=== PATIENT | female | born 1935 | race Caucasian/White ===

== ENCOUNTER → 2016-06-30 | Outpatient (CLI) | payer MEDICARE, BC ==
[~2016-06-30] MED LIST: LIPITOR TAB 2020 MG PO; METOPROLOL SUCC25 MG PO; NORCO 5-325 TA1 EACH PO
[2016-06-30 11:05] LABS: BUN/CREATININE RATIO 13 (0-10)
== END ==
PROVIDERS: Orthopaedic Surgery
DX: Z01.810 Encounter for preprocedural cardiovascular examination (principal); Z01.812 Encounter for preprocedural laboratory examination; R22.31 Localized swelling, mass and lump, right upper limb; I10 Essential (primary) hypertension; Z88.0 Allergy status to penicillin; Z88.5 Allergy status to narcotic agent; Z91.040 Latex allergy status
CPT/HCPCS: 36415; 80048; 93005

== ENCOUNTER → 2016-06-30 | Outpatient (CLI) | payer MEDICARE, BC | LOC: KOH-I 06-25 08:00 | DX: R22.31 Localized swelling, mass and lump, right upper limb (principal) | CPT/HCPCS: 73218 ==

== ENCOUNTER → 2016-07-01 | Day surgery (SDC) | payer MEDICARE, BC ==
[~2016-07-01] VITALS: Ht 157.5 cm; Wt 60.8 kg
== END | disposition home or self-care (01) ==
LOC: OR 06:03
PROVIDERS: Orthopaedic Surgery
PROC: 0LR707Z Replacement of Right Hand Tendon with Autologous Tissue Substitute, Open Approach (ICD-10-PCS; 2016-07-01)
PROC: 0LB70ZZ Excision of Right Hand Tendon, Open Approach (ICD-10-PCS; principal; 2016-07-01 09:15)
DX: D49.2 Neoplasm of unspecified behavior of bone, soft tissue, and skin (principal); K21.9 Gastro-esophageal reflux disease without esophagitis; I10 Essential (primary) hypertension; E78.5 Hyperlipidemia, unspecified; J45.909 Unspecified asthma, uncomplicated; F41.9 Anxiety disorder, unspecified; M19.90 Unspecified osteoarthritis, unspecified site; M81.0 Age-related osteoporosis without current pathological fracture; Z88.0 Allergy status to penicillin; Z91.040 Latex allergy status; Z88.6 Allergy status to analgesic agent; Z85.828 Personal history of other malignant neoplasm of skin; Z98.41 Cataract extraction status, right eye; Z98.42 Cataract extraction status, left eye; Z82.49 Family history of ischemic heart disease and other diseases of the circulatory system; Z83.3 Family history of diabetes mellitus
CPT/HCPCS: 36415; 80048; 88341; 88342; 93005; J0690; J1200; J2001; J2250; J2405; J3010; J7120

== ENCOUNTER 2016-07-02 06:02 | Emergency (ER) | payer MEDICARE, BC | END 2016-07-02 08:01 | disposition home or self-care (01) | LOC: ER1 06:02 | DX: G89.18 Other acute postprocedural pain (principal); M79.641 Pain in right hand; I10 Essential (primary) hypertension; E78.5 Hyperlipidemia, unspecified; Z88.0 Allergy status to penicillin; Z88.5 Allergy status to narcotic agent; Z98.890 Other specified postprocedural states | CPT/HCPCS: 99283 ==

== ENCOUNTER 2020-06-21 23:16 | Emergency (ER) | payer MEDICARE ==
[2020-06-22 01:25] LABS: HEMOGLOBIN 13.2 gm/dl (12.3-15.3); RED BLOOD COUNT 4.1 M/UL (4.00-5.10); WHITE BLOOD COUNT 7.7 K/UL (4.5-11.0)
[2020-06-22 01:39] LABS: BUN/CREATININE RATIO 22 (0-10)
== END 2020-06-22 05:50 | disposition short-term general hospital (02) ==
LOC: ER1 23:16
PROVIDERS: Emergency Medicine
DX: I71.4 Abdominal aortic aneurysm, without rupture (principal); I16.0 Hypertensive urgency; Z90.710 Acquired absence of both cervix and uterus; Z88.0 Allergy status to penicillin; Z88.8 Allergy status to other drugs, medicaments and biological substances
CPT/HCPCS: 36415; 71045; 80053; 81001; 82550; 82553; 83605; 83690; 83874; 84100; 84484; 85025; 85610; 85730; 87086; 93005; 96365; 96375; 99285; J2270; J2405; Q9967

== ENCOUNTER 2020-07-24 13:21 | Emergency (ER) | payer MEDICARE ==
[2020-07-24 14:23] LABS: HEMOGLOBIN 12.3 gm/dl (12.3-15.3); RED BLOOD COUNT 3.9 M/UL (4.00-5.10); WHITE BLOOD COUNT 5.9 K/UL (4.5-11.0)
[2020-07-24 16:35] LABS: BUN/CREATININE RATIO 11 (0-10)
== END 2020-07-24 18:43 | disposition home or self-care (01) ==
LOC: ER1 13:21
PROVIDERS: Emergency Medicine
DX: K58.9 Irritable bowel syndrome, unspecified (principal); I25.10 Atherosclerotic heart disease of native coronary artery without angina pectoris; F17.210 Nicotine dependence, cigarettes, uncomplicated; Z88.0 Allergy status to penicillin; Z91.040 Latex allergy status; Z88.8 Allergy status to other drugs, medicaments and biological substances; Z20.822 Contact with and (suspected) exposure to COVID-19
CPT/HCPCS: 71045; 80053; 81001; 82550; 82553; 83605; 83690; 83874; 83880; 84484; 85025; 85610; 85652; 85730; 86140; 86850; 86900; 86901; 87086; 96374; 96375; 99284; C9113; J1170; Q9967; U0002